=== PATIENT | male | born 1970 | race African-American/Black ===

== ENCOUNTER 2019-05-10 14:58 | Emergency (ER) | payer OTHER ==
[~2019-05-10] VITALS: Ht 180.3 cm; Wt 75.8 kg
[2019-05-10] MEDS ORDERED: QVAR REDIHALE10.6 G1 IH (15:11)
[2019-05-10] MEDS ORDERED: VENTOLIN HFA18 GM INH (15:11)
[2019-05-10] MEDS ORDERED: NORCO 5-325 TA1 EACH PO (17:06)
== END 2019-05-10 17:24 | disposition home or self-care (01) ==
LOC: ED 14:58
DX: S46.912A Strain of unspecified muscle, fascia and tendon at shoulder and upper arm level, left arm, initial encounter (principal); S93.401A Sprain of unspecified ligament of right ankle, initial encounter; F17.200 Nicotine dependence, unspecified, uncomplicated; Z88.0 Allergy status to penicillin; W11.XXXA Fall on and from ladder, initial encounter
CPT/HCPCS: 73060; 73610; 99283-25; 99406

== ENCOUNTER 2019-05-19 20:18 | Emergency (ER) | payer OTHER ==
[~2019-05-19] VITALS: Ht 180.3 cm; Wt 75.3 kg
[~2019-05-19 20:18] MED LIST: NORCO 5-325 TA1 EACH PO; QVAR REDIHALE10.6 G1 IH; VENTOLIN HFA18 GM INH
--- OUTSIDE RECORDS SUMMARY | 2019-05-19 20:20 | XMS ---
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 - 2 Visits in 30 Days CARE PROVIDERS There are no care providers on record at this time. Annie has no Care Guidelines for this patient. [facility] (12 MO.) [facility] TOTAL 2 NOTE: Visits indicate total known visits. ED/C VISIT TRACKING (12 MO.) 05/19/2019 20:18 [facility] TYPE: Emergency COMPLAINT: - SHOULDER/ARM PAIN 05/10/2019 15:00 [facility] TYPE: Emergency COMPLAINT: - INJURIES FROM FALL DIAGNOSES: - Pain in left arm - Sprain of unspecified ligament of right ankle, init encntr - Fall on and from ladder, initial encounter - Allergy status to penicillin - Strain unsp musc/fasc/tend at shldr/up arm, left arm, init - Nicotine dependence, unspecified, uncomplicated INPATIENT VISIT TRACKING (12 MO.) No inpatient visits to display in this time frame [email or web address]
== END 2019-05-19 21:12 | disposition home or self-care (01) ==
LOC: ED 20:18
DX: S93.401A Sprain of unspecified ligament of right ankle, initial encounter (principal); S49.92XA Unspecified injury of left shoulder and upper arm, initial encounter; W19.XXXA Unspecified fall, initial encounter; F17.200 Nicotine dependence, unspecified, uncomplicated; Z88.0 Allergy status to penicillin; Z79.899 Other long term (current) drug therapy
CPT/HCPCS: 99283